=== PATIENT | male | born 1965 | race Two or more races ===

== ENCOUNTER 2024-01-13 04:54 | Emergency (ER) | payer OTHER, SELFPAY ==
[2024-01-13 04:59] VITALS: BP 149/74; PULSE 54; RESP 19; TEMP 36.6; O2SAT 100; BMI 26.4
--- NOTE | 2024-01-13 05:05 | XR_ITS ---
Examination: Right elbow 3 views Technique: Elbow AP, oblique, lateral 3 views Exam date and time: January 13, 2024 0524 hours INDICATIONS: Work injury to the elbow today, elbow pain FINDINGS: No fracture or dislocation No foreign body IMPRESSION: No fracture or dislocation.
--- NOTE | 2024-01-13 05:05 | EDRME_ITS ---
Rapid Medical Screening Exam [facility] Arrival date/time: 01/13/24 04:54 58M with no significant PMH presents to ED with R elbow pain that radiates to shoulder after he hit his elbow against a wall while pulling some heavy machinery at work. Chief Complaint: Extremity Injury, Upper Vital signs: Vital Signs Temperature 98 F 01/13/24 04:59 Pulse Rate 54 L 01/13/24 04:59 Respiratory Rate 19 01/13/24 04:59 Blood Pressure 149/74 H 01/13/24 04:59 Pulse Oximetry (%) 100 01/13/24 04:59 Oxygen Delivery Method Room Air 01/13/24 04:59
--- NOTE | 2024-03-05 07:19 | PD.EDUPEX ---
Upper Extremity Injury RME/HPI General Chief Complaint: Extremity Injury, Upper Stated Complaint: RIGHT ELBOW INJURY AT WORK Time Seen by Provider: 01/13/24 07:25 Source: patient Arrival date/time: 01/13/24 04:54 58M with no significant PMH presents to ED with R elbow pain that radiates to shoulder after he hit his elbow against a wall while pulling some heavy machinery at work. Mode of arrival: ambulatory Limitations: no limitations RME / HPI RME / HPI narrative: 01/13/24 04:54 58M with no significant PMH presents to ED with R elbow pain that radiates to shoulder after he hit his elbow against a wall while pulling some heavy machinery at work. Related Data Allergies Allergy/AdvReac Type Severity Reaction Status Date / Time No Known Allergies Allergy Verified 01/13/24 04:55 Review of Systems Review of Systems Systems Reviewed: All systems reviewed, normal except as documented Constitutional Constitutional: Reports system reviewed and no additional complaints, except as documented, Denies fatigue, Denies fever(s), Denies headache(s) and Denies weakness Eyes Eyes: Reports system reviewed and no additional complaints, except as documented, Denies blurry vision and Denies change in vision ENT Ears, Nose, Mouth, and Throat: Reports system reviewed and no additional complaints, except as documented, Denies otalgia, Denies headache(s), Denies nasal congestion, Denies throat swelling and Denies vertigo Cardiovascular Cardiovascular: Reports system reviewed and no additional complaints, except as documented, Denies chest pain, Denies dyspnea and Denies dyspnea on exertion Respiratory Respiratory: Reports system reviewed and no additional complaints, except as documented, Denies chest congestion, Denies cough, Denies dyspnea, Denies dyspnea on exertion and Denies wheezing Gastrointestinal Gastrointestinal: Reports system reviewed and no additional complaints, except as documented, Denies abdominal pain, Denies cramping, Denies nausea and Denies vomiting Genitourinary Genitourinary: Reports system reviewed and no additional complaints, except as documented, Denies dysuria and Denies hematuria Musculoskeletal Musculoskeletal: Reports system reviewed and no additional complaints, except as documented, Reports arthralgias, Denies back pain and Reports joint swelling Integumentary/Breasts Skin/Breast: Reports system reviewed and no additional complaints, except as documented and Denies wounds Neurologic Neurologic: Reports system reviewed and no additional complaints, except as documented, Denies confusion, Denies headache(s), Denies lack of coordination, Denies vertigo and Denies weakness Psychiatric Psychiatric: Reports system reviewed and no additional complaints, except as documented, Denies anxiety, Denies confusion, Denies depression, Denies paranoia, Denies suicidal ideation and Denies tactile hallucinations Endocrine Endocrine: Reports system reviewed and no additional complaints, except as documented and Denies fatigue Hematologic/Lymphatic Hematologic/Lymphatic: Reports system reviewed and no additional complaints, except as documented and Denies lymphadenopathy Allergic/Immunologic Allergic/Immunologic: Reports system reviewed and no additional complaints, except as documented, Denies throat swelling, Denies urticaria and Denies wheezing Past Medical History Social History SMOKING STATUS: Never smoker ED Exam General Limitations: Present no limitations General appearance: Present alert and in no apparent distress Head Head exam: Present atraumatic Eye Eye exam: Present normal appearance, PERRL and EOMI ENT ENT exam: Present normal exam, normal oropharynx and mucous membranes moist Neck Neck exam: Present normal inspection, full ROM and trachea midline Chest Chest inspection: Present normal inspection and symmetric chest wall rise Respiratory Respiratory exam: Present normal lung sounds bilaterally Cardiovascular Cardiovascular exam: Present regular rate, normal rhythm and normal heart sounds Abdominal Exam Abdominal exam: Present soft and normal bowel sounds Extremities Exam Extremities exam: Present normal inspection and full ROM Expanded Upper Extremity Exam Shoulder exam: Present normal inspection Arm exam: Present normal inspection Elbow exam: Present tenderness and swelling; Absent full ROM Forearm/Wrist exam: Present normal inspection Hand exam: Present normal inspection Vascular exam: Normal capillary refill Back Exam Back exam: Present normal inspection and full ROM Neurological Exam Neurological exam: Present alert, oriented X3 and CN II-XII intact Psychiatric Psychiatric exam: Present normal affect and normal mood Skin Skin exam: Present warm, dry, intact and normal color Course Quality Measures none Orders Category Date Time Status XR elbow comp RT min 3V Stat Exams 01/13/24 05:05 Completed Vital Signs Vital signs: Vital Signs Temperature 98 F 01/13/24 04:59 Pulse Rate 54 L 01/13/24 04:59 Respiratory Rate 19 01/13/24 04:59 Blood Pressure 149/74 H 01/13/24 04:59 Pulse Oximetry (%) 100 01/13/24 04:59 Oxygen Delivery Method Room Air 01/13/24 04:59 99% within normal limits Extremity Injury MDM Narrative MDM Narrative:: 58M with no significant PMH presents to ED with R elbow pain that radiates to shoulder after he hit his elbow against a wall while pulling some heavy machinery at work. Patient presents with tenderness and pain to right elbow. there is minor swelling but no obvious deformity. Xray was completed and there is no fracture or deformity. Pt was educated to follow up with pcp and return to ed for any evidence of worsening symptoms Patient data External records reviewed:: [facility] previous records Clinical information provided by:: patient Social determinants that could affect healthcare access:: none Patient has the following chronic illnesses:: n/a How is presenting disease/condition affected by chronic disease/condition?: no chronic disease Evaluation data The following diagnostics were reviewed and interpreted by me:: lab results and radiology exam(s) Lab and/or radiology exams considered but not ordered:: labs and radiology exams considered and ordered Interpretation Summary: right elbow xray- FINDINGS: No fracture or dislocation No foreign body IMPRESSION: No fracture or dislocation. Medications / Prescriptions Medications or Prescriptions considered but not ordered:: medication considered and not ordered Medication administrations:: n/a Consultations Consultation(s) initiated? (list below): No Diagnosis Upper Extremity Injury Differential Diagnosis: other (elbow fracture/elbow sprain) Most likely diagnosis given after review of the tests above:: elbow sprain Admission Indicated Admission indicated?: not indicated Admission Request Was there a request for admission?: No Disposition Plan Disposition Plan: Discharge Discharge Attestation Discharge Attestation: The patient and all family members were given an opportunity to ask questions and understood the discharge instructions. Discharge instructions specifically effects, indications for sooner follow up or return to the emergency department, and the expected course of current diagnosis. Patient condition: Stable Discharge Plan Plan Patient Disposition: HOME (Self Care) Disposition Comment: Stable Prescriptions/Referrals Referrals: No Primary/Family,Physician [Primary Care Provider] - In 1 week Problem List Clinical Impression: Contusion of elbow, right, Sprain and strain of elbow Patient/Caregiver Discharge Instructions Education Materials: ED Contusion, Elbow Additional Instructions: Trever un seguimiento con lee proveedor de atenci?n primaria en las pr?ximas 24 a 48 horas. Se completaron radiograf?as del codo derecho y fueron negativas para fracturas agudas. Ante cualquier evidencia de empeoramiento de los signos o s?ntomas, regrese a la sharron de emergencias de inmediato. Print Language: Turkmen Stand Alone Forms: Penny Award Info., Work/School Release, Patient Portal Info Letter PA/CHILD DEVELOPMENT SPECIALIST Supervising Physician PA/CHILD DEVELOPMENT SPECIALIST Supervising Physician: Dr Flores
== END 2024-01-13 09:40 | disposition home or self-care (01) ==
PROVIDERS: Emergency Provider Emergency Medicine
DX: S53.401A Unspecified sprain of right elbow, initial encounter (principal); S46.811A Strain of other muscles, fascia and tendons at shoulder and upper arm level, right arm, initial encounter; W22.8XXA Striking against or struck by other objects, initial encounter; Y93.89 Activity, other specified; Y92.89 Other specified places as the place of occurrence of the external cause; Y99.0 Civilian activity done for income or pay
CPT/HCPCS: 73080; 99283